=== PATIENT | female | born 1995 ===

== ENCOUNTER → 2021-03-13 12:35 | Outpatient (CLI) | payer OTHER, SELFPAY ==
--- NOTE | 2021-03-13 12:44 | DI.MRI.S_ITS ---
PROCEDURE: MR TMJ WO CON INDICATIONS: Jaw pain TECHNIQUE: Axial T1 spin echo, coronal and sagittal PD fast spin echo through the temporomandibular joints, in both the closed- and open-mouth positions. COMPARISON: None. FINDINGS: Image quality: Excellent. Right: Joint is normally aligned on closed and open-mouth positioning. Articular disk demonstrates normal location and morphology. No bony erosions. Right condyle has a flat shape likely congenital. Mild right condylar marginal osteophytosis. Left: Joint is normally aligned on closed and open-mouth positioning. Articular disk demonstrates normal location and morphology. No bony erosions. Left condyle has a flat shape likely congenital. Mild right condylar marginal osteophytosis. IMPRESSION: 1. 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 2. Mild bilateral mandibular condyle marginal osteophytosis compatible with mild osteoarthritis. Dictated by: Danna Duran MD, PhD on 03/13/2021 at 13:28 Approved by: Danna Duran MD, PhD on 03/13/2021 at 13:33
== END ==
PROVIDERS: PCP Family Medicine; Referring Provider Dentist Oral and Maxillofacial Surgery; Visit Provider Dentist Oral and Maxillofacial Surgery
DX: R68.84 Jaw pain (principal)
CPT/HCPCS: 70336

== ENCOUNTER → 2022-08-20 16:27 | Outpatient (CLI) | payer OTHER, SELFPAY ==
--- NOTE | 2022-08-20 | DI.MRI.S_ITS ---
PROCEDURE: MR WRIST LT WO CON INDICATIONS: Unspecified sprain of left wrist TECHNIQUE: Noncontrast coronal proton density fast spin echo and T2 fast spin echo with fat saturation; coronal 3-D gradient echo, axial T1 spin echo and T2 fast spin echo with fat saturation, sagittal T1 spin echo through the wrist. COMPARISON: [facility] [place], CR, XR WRIST 3+ VIEWS LEFT, 08/06/2022, 10:09. FINDINGS: Image quality: Excellent. Bones and cartilage: The carpal bones are normally aligned. No bone marrow contusions or fractures. No evidence for avascular necrosis. Overlying cartilage surfaces appear normal. Carpal ligaments: The scapholunate and lunotriquetral ligaments appear intact. In the absence of intra-articular contrast, the extrinsic carpal ligaments are not well identified. On sagittal images, the pisohamate ligament appears intact. Triangular fibrocartilage complex: The triangular fibrocartilage appears intact. The adjacent meniscal homolog appears normal in the absence of intra-articular contrast. The extensor carpi ulnaris tendon is normal in location and morphology. Tendons and soft tissues: The carpal tunnel structures appear normal, including the median nerve. The ulnar nerve appears normal within Guyon's canal. All six extensor tendon compartments demonstrate normal morphology, without pathologic tendon sheath fluid. No soft tissue ganglion cysts. IMPRESSION: No evidence of injury to the wrist. Dictated by: Ar Diaz M.D. on 08/21/2022 at 9:22 Approved by: Ar Diaz M.D. on 08/21/2022 at 9:23
== END ==
PROVIDERS: PCP Family Medicine; Referring Provider Orthopaedic Surgery; Visit Provider Orthopaedic Surgery
DX: S63.502A Unspecified sprain of left wrist, initial encounter (principal); X58.XXXA Exposure to other specified factors, initial encounter
CPT/HCPCS: 73221

== ENCOUNTER → 2023-01-23 16:20 | Outpatient (CLI) | payer OTHER, SELFPAY ==
--- NOTE | 2023-01-23 16:22 | DI.MRI.S_ITS ---
PROCEDURE: MR TMJ WO CON INDICATIONS: Unspecified temporomandibular joint disorder, unsp TECHNIQUE: Axial T1 spin echo, coronal and sagittal PD fast spin echo through the temporomandibular joints, in both the closed- and open-mouth positions. COMPARISON: [facility], MR, MR TMJ WO CON, 03/13/2021, 12:50. FINDINGS: Image quality: Excellent. Right: Joint is normally aligned on closed and open-mouth positioning. The right articular disc is irregular and appears truncated posteriorly. On the open-mouth positioning, the disc appropriately capture is on 1 of the sets of images. There is flattening, irregularity and spur formation seen involving the right mandibular condyle. Left: Joint is normally aligned on closed and open-mouth positioning. The left articular disc is irregular and appears truncated posteriorly, with fluid seen adjacent to it. On the open mouth images, the left articular disc does not appropriately capture. The left mandibular condyle appears flattened, with spur formation in flattening. IMPRESSION: Worsening of the abnormal findings of both temporomandibular joints compared to 2020. Dictated by: Malachi Heaton M.D. on 01/24/2023 at 9:48 Approved by: Malachi Heaton M.D. on 01/24/2023 at 9:51
== END ==
PROVIDERS: PCP Physician Assistant; Referring Provider Nurse Practitioner Family; Visit Provider Nurse Practitioner Family
DX: M26.603 Bilateral temporomandibular joint disorder, unspecified (principal)
CPT/HCPCS: 70336

== ENCOUNTER → 2023-12-22 11:09 | Outpatient (CLI) | payer OTHER, SELFPAY ==
--- NOTE | 2023-12-22 | DI.MRI.S_ITS ---
PROCEDURE: MR SHOULDER RT WO CON INDICATIONS: Pain in right shoulder TECHNIQUE: Noncontrast oblique coronal T2 fast spin echo with fat saturation, oblique sagittal T1 spin echo and T2 fast spin echo with fat saturation, axial T1 spin echo and T2 fast spin echo with fat saturation through the shoulder. COMPARISON: None. FINDINGS: Image quality: Excellent. Rotator cuff: There is moderate supraspinatus tendinosis. There is high-grade partial-thickness tear of the posterior fibers of the distal supraspinatus tendon at the humeral attachment. Suspect pinhole full-thickness perforation. No supraspinatus muscle atrophy. There is mild infraspinatus, and subscapularis tendinosis with low-grade interstitial tear. No infraspinatus or subscapularis muscle atrophy. Bones and bursae: No bone marrow contusions or fractures. Mild acromioclavicular joint degeneration. The acromion demonstrates conventional anatomy, without an os acromiale. Small amount of subcoracoid bursal fluid is present. Capsule and soft tissues: Labrum appears intact. There is moderate tendinosis of the long head of the biceps tendon which demonstrates normal location and morphology. The rotator interval appears normal, without fibrosis. The coracohumeral ligament is normal in thickness. IMPRESSION: 1. High-grade partial-thickness tear of the posterior fibers of the distal supraspinatus tendon at the humeral attachment. There may be full-thickness pinhole perforation of the supraspinatus tendon. No supraspinatus muscle atrophy. 2. Mild tendinosis of the infraspinatus and subscapularis tendons without high-grade tear. 3. Moderate tendinosis of the long head of the biceps. 4. Mild acromioclavicular arthrosis. 5. Small subcoracoid bursal fluid consistent with mild bursitis. Dictated by: Olivia Stephenson M.D. on 12/23/2023 at 8:18 Approved by: Olivia Stephenson M.D. on 12/23/2023 at 12:54
== END ==
PROVIDERS: PCP Physician Assistant; Referring Provider Nurse Practitioner Family; Visit Provider Nurse Practitioner Family
DX: M75.111 Incomplete rotator cuff tear or rupture of right shoulder, not specified as traumatic (principal); M19.011 Primary osteoarthritis, right shoulder; M25.511 Pain in right shoulder
CPT/HCPCS: 73221

== ENCOUNTER → 2024-02-12 06:35 | Outpatient (CLI) | payer OTHER, SELFPAY ==
--- NOTE | 2024-02-12 06:36 | DI.ECHO.S_ITS ---
[place] [facility]---------+ [facility] : : [address] : : [place] : : [id number] : : Phone: [phone] Echocardiogram Report + + :Name: BRITANY HILARIO Study Date: 02/12/2024 Height: 64 in : :[facility] ReadingLocation: Weight: 149 lb : : Gender: Female BSA: 1.7 m2 : :: 1995 Age: 29 yrs BP: 116/87 mmHg: :Reason For Study: TACHYCARDIA : :Ordering Physician: TONE TOM : :JOSE Performed By: Fide Del Valle : :Referring: TONE TOM JOSE : + + Interpretation Summary 1) Normal left ventricular thickness, size, wall motion, and systolic function (EF 55-60%). 2) Normal right ventricular size and function. 3) No significant valvular abnormalities. 4) No prior Echo available for comparison. Procedure: A two-dimensional transthoracic echocardiogram with color flow and Doppler was performed. The study quality was technically adequate. There is no prior echocardiogram noted for this patient. The patient was in sinus rhythm with heart rates between 86-107 bpm during the exam. Left Ventricle: The left ventricle is normal in size and wall thickness. The ejection fraction is estimated to be 55-60%. Left ventricular systolic function appears normal without focal wall motion abnormalities. Diastolic parameters suggest probable normal left ventricular diastolic function and normal filling pressures. Right Ventricle: The right ventricle is normal in size and function. Atria: The left atrial size is normal. Right atrial size is normal. There is no Doppler evidence for an interatrial shunt. Mitral Valve: The mitral valve is normal in structure and function. There is trace mitral regurgitation. Aortic Valve: The aortic valve is trileaflet. The aortic valve opens well. There is no aortic valve stenosis. No aortic regurgitation is present. Tricuspid Valve: The tricuspid valve is normal in structure and function. No tricuspid regurgitation. Pulmonary artery pressures cannot be estimated because of the lack of a measurable TR jet velocity. Pulmonic Valve: The pulmonic valve leaflets are thin and pliable; valve motion is normal. There is mild pulmonic regurgitation. Great Vessels: The aortic root is normal size. The ascending aorta could not be visualized. The IVC is of normal diameter and collapses greater than 50% with a sniff. This suggests a low right atrial pressure of 3 mm Hg. Pericardium/ Pleura There is no pericardial effusion. There is no pleural effusion. MMode/2D Measurements & Calculations LVIDd: 4.4 cm LVOT diam: 2.1 cm LVIDs: 2.7 cm Ao root diam: 3.0 cm FS: 37.9 % Ao Arch Diam (Prox Trans): 2.5 cm IVSd: 0.69 cm LVPWd: 0.67 cm LV perry. diameter/BSA (cm/m^2): 2.5 LV sys. diameter/BSA (cm/m^2): 1.6 LA A2 area: 14.6 cm2 RA long axis: 3.6 cm LA A4 area: 11.2 cm2 RA area: 8.8 cm2 LA length (vol): 4.0 cm RA vol: 18.3 ml LA vol: 34.7 ml RA : 10.6 ml/m2 LA vol index: 20.1 ml/m2 IVC diam: 0.90 cm RVD1 (basal): 3.6 cm TAPSE: 1.7 cm Doppler Measurements & Calculations Ao V2 max: 108.0 cm/sec LVOT Max Jan: 79.7 cm/sec Ao V2 mean: 84.9 cm/sec LV V1 max P.5 mmHg Ao max P.7 mmHg LV V1 VTI: 13.7 cm Ao mean P.1 mmHg MATT(I,D): 2.7 cm2 Ao V2 VTI: 18.4 cm MATT(V,D): 2.7 cm2 sev ratio: 0.75 MATT indexed to BSA (cm^2/m^2): 1.6 MV E max jan: 58.7 cm/sec PA V2 max: 82.9 cm/sec MV A max jan: 62.8 cm/sec PA V2 mean: 57.9 cm/sec MV E/A: 0.93 PA mean P.5 mmHg Med Peak E' Jan: 10.7 cm/sec PA pr(Accel): 27.6 mmHg E/E' med: 5.5 Lat Peak E' Jan: 13.7 cm/sec E/E' lat: 4.3 E/e' average: 4.9 MV dec time: 0.17 sec SV(LVOT): 49.6 ml Reading Physician:09:40 AM
== END ==
LOC: ECHO 06:35
PROVIDERS: PCP Physician Assistant; Referring Provider Family Medicine; Visit Provider Family Medicine
DX: I37.1 Nonrheumatic pulmonary valve insufficiency (principal); R00.0 Tachycardia, unspecified
CPT/HCPCS: 93306